=== PATIENT | female | born 1980 | race Caucasian/White ===

== ENCOUNTER 2017-12-30 09:23 | Emergency (ER) | payer MEDICARE ==
[~2017-12-30] VITALS: Ht 162.6 cm; Wt 73.5 kg
--- NOTE | 2017-12-30 09:46 | EKG ---
[address] [address] Test Date: 2017-12-30 Test Time: 09:31:24 Pat Name: GIOVANNI HANDLEY Department: Room: Gender: F Recreation Instructor: : 1980 Requested By: EYAD DELEON Order Number: [id number] Reading MD: Luis Huizar MD Measurements Intervals [place] Rate: 50 P: 67 GA: 126 QRS: 77 QRSD: 82 T: 60 QT: 480 QTc: 440 Interpretive Statements SINUS RHYTHM Electronically Signed On 12-31-2017 10:43:28 CDT by Luis Huizar MD
[2017-12-30 09:52] LABS: BASO % 0 % (0-3); EOS # 0.2 x10^3/uL (0.0-0.7); EOS % 3 % (0-3); HEMATOCRIT 34.4 % (36.0-47.0); LYMPH # 1.1 x10^3/uL (1.0-4.8); LYMPH % 19 % (24-48); MEAN CORPUSCULAR HEMOGLOBIN 34 pg (25-35); MEAN CORPUSCULAR HGB CONC 35 g/dL (31-37); MEAN CORPUSCULAR VOLUME 96 fL (79-100); MONO # 0.4 x10^3/uL (0.0-1.1); MONO % 6 % (0-9); NEUT # 4.3 x10^3uL (1.8-7.7); NEUT % 72 % (31-73); PLATELET COUNT 188 x10^3/uL (140-400); RED BLOOD COUNT 3.58 x10^6/uL (3.50-5.40); RED CELL DISTRIBUTION WIDTH 12.5 % (11.5-14.5); WHITE BLOOD COUNT 5.9 x10^3/uL (4.0-11.0)
[2017-12-30 10:01] LABS: PREG TEST PT QUAL POSITIVE (NEG)
[2017-12-30 10:04] LABS: ALBUMIN 3.4 g/dL (3.4-5.0); ALBUMIN/GLOBULIN RATIO 1.3 (1.0-1.7); CALCIUM 8.3 mg/dL (8.5-10.1); GFR 63.1; POTASSIUM 4.6 mmol/L (3.5-5.1); TOTAL BILIRUBIN 0.5 mg/dL (0.2-1.0); TOTAL PROTEIN 6.1 g/dL (6.4-8.2)
[2017-12-30] MEDS ORDERED: IV NORMAL SALINE 1,000ML 1,000 ML IV ONE (10:15)
--- NOTE | 2017-12-30 11:35 | PHYS DOC ---
Past History Past Medical History: No Pertinent History Past Surgical History: No Surgical History Alcohol Use: Occasionally Drug Use: None Adult General Chief Complaint Chief Complaint: NEAR SYCOPE [facility] HPI Patient is a 37 year old female who brought in by EMS because of vaginal bleeding and near syncope and dizziness. Patient states she was on control for several years irregular menstruation and stopped control pills about couple months ago area patient states she had a normal menstruation in November and the Associates of vaginal bleeding since December 12 with spotting intermittently. 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 Reports that she was hypertensive at 80s and bradycardia at 40s and had nausea and treated with IV fluid and Zofran with improvement of her condition. She denies focal neuro deficit, headache, fever and chills, chest pain and shortness of breath. Review of Systems Review of Systems Constitutional: Denies fever or chills [] Eyes: Denies change in visual acuity, redness, or eye pain [] HENT: Denies nasal congestion or sore throat [] Respiratory: Denies cough or shortness of breath [] Cardiovascular: No additional information not addressed in HPI [] GI: Denies abdominal pain, nausea, vomiting, bloody stools or diarrhea [] : Denies dysuria or hematuria [] Musculoskeletal: Denies back pain or joint pain [] Integument: Denies rash or skin lesions [] Neurologic: Denies headache, focal weakness or sensory changes [] Endocrine: Denies polyuria or polydipsia [] All other systems were reviewed and found to be within normal limits, except as documented in this note. Current Medications Current Medications Current Medications Medications (Trade) Dose Ordered Sig/Chelsi Start Time Stop Time Status Last Admin Dose Admin Sodium Chloride 1,000 ml @ 1,000 mls/hr 1X ONCE 12/30/17 10:15 12/30/17 11:14 DC 12/30/17 10:25 1,000 MLS/HR Allergies Allergies Allergies Coded Allergies Type Severity Reaction Last Updated Verified Penicillins Allergy Intermediate 12/30/17 Yes Physical Exam Physical Exam Constitutional: Well developed, well nourished, no acute distress, non-toxic appearance. [] HENT: Normocephalic, atraumatic, oropharynx moist, no oral exudates, nose normal. [] Eyes: PERRLA, EOMI, conjunctiva normal, no discharge. [] Neck: Normal range of motion, no tenderness, supple, no stridor. [] Cardiovascular: Bradycardia, no murmur [] Lungs & Thorax: Bilateral breath sounds clear to auscultation [] Abdomen: Bowel sounds normal, soft, no tenderness, no masses, no pulsatile masses. Patient did not want to have vaginal exam. [] Skin: Warm, dry, no erythema, no rash. [] Back: No tenderness, no CVA tenderness. [] Extremities: No tenderness, no cyanosis, no clubbing, ROM intact, no edema. [] Neurologic: Alert and oriented X 3, normal motor function, normal sensory function, no focal deficits noted. [] Psychologic: Affect normal, judgement normal, mood normal. [] Current Patient Data Vital Signs Vital Signs Date Time Temp Pulse Resp B/P (MAP) Pulse Ox O2 Delivery O2 Flow Rate FiO2 12/30/17 10:15 63 20 101/51 (68) 100 Room Air 12/30/17 09:23 97.6 Lab Results Laboratory Tests Test 12/30/17 09:39 White Blood Count 5.9 x10^3/uL (4.0-11.0) Red Blood Count 3.58 x10^6/uL (3.50-5.40) Hemoglobin 12.0 g/dL (12.0-15.5) Hematocrit 34.4 % (36.0-47.0) L Mean Corpuscular Volume 96 fL (79-100) Mean Corpuscular Hemoglobin 34 pg (25-35) Mean Corpuscular Hemoglobin Concent 35 g/dL (31-37) Red Cell Distribution Width 12.5 % (11.5-14.5) Platelet Count 188 x10^3/uL (140-400) Neutrophils (%) (Auto) 72 % (31-73) Lymphocytes (%) (Auto) 19 % (24-48) L Monocytes (%) (Auto) 6 % (0-9) Eosinophils (%) (Auto) 3 % (0-3) Basophils (%) (Auto) 0 % (0-3) Neutrophils # (Auto) 4.3 x10^3uL (1.8-7.7) Lymphocytes # (Auto) 1.1 x10^3/uL (1.0-4.8) Monocytes # (Auto) 0.4 x10^3/uL (0.0-1.1) Eosinophils # (Auto) 0.2 x10^3/uL (0.0-0.7) Basophils # (Auto) 0.0 x10^3/uL (0.0-0.2) Maternal Serum HCG Beta Subunit 6434 mIU/mL (0-6) H Sodium Level 140 mmol/L (136-145) Potassium Level 4.6 mmol/L (3.5-5.1) Chloride Level 105 mmol/L (98-107) Carbon Dioxide Level 28 mmol/L (21-32) Anion Gap 7 (6-14) Blood Urea Nitrogen 15 mg/dL (7-20) Creatinine 1.0 mg/dL (0.6-1.0) Estimated GFR (Cockcroft-Gault) 63.1 BUN/Creatinine Ratio 15 (6-20) Glucose Level 121 mg/dL (70-99) H Calcium Level 8.3 mg/dL (8.5-10.1) L Total Bilirubin 0.5 mg/dL (0.2-1.0) Aspartate Amino Transferase (AST) 12 U/L (15-37) L Alanine Aminotransferase (ALT) 18 U/L (14-59) Alkaline Phosphatase 46 U/L (46-116) Troponin I Quantitative < 0.017 ng/mL (0-0.055) Total Protein 6.1 g/dL (6.4-8.2) L Albumin 3.4 g/dL (3.4-5.0) Albumin/Globulin Ratio 1.3 (1.0-1.7) Serum Test, Qualitative Positive (NEG) EKG EKG EKG interpreted by me. EKG at 11-14 showed sinus bradycardia at rate of 50, no acute ST and T-wave abnormalities Radiology/Procedures Radiology/Procedures [address] [address] IMAGING REPORT Signed PATIENT: GIOVANNI HANDLEY ACCOUNT: [id number] : 1980 LOCATION: ER AGE: 37 SEX: F EXAM STATUS: REG ER ORD. PHYSICIAN: EYAD DELEON MD REASON: vaginal bleeding in PROCEDURE: OB <14 WKS W/TV EXAM: Obstetrics sonogram. HISTORY: Vaginal bleeding. TECHNIQUE: Transabdominal and transvaginal sonographic imaging of the pelvis was performed. COMPARISON: None. FINDINGS: The uterus measures 9.5 x 4.0 x 3.8 cm. The cervix measures 3.0 cm in length. The endometrial stripe measures 11 mm in thickness. There is no intrauterine gestational sac. The ovaries are normal in size and demonstrate normal blood flow. There is no pelvic free fluid. IMPRESSION: 1. No evidence of an intrauterine gestational sac. There is no beta-hCG level at the time of dictation for correlation. The absence of a gestational sac may be due to early gestation or a chemical . Correlation with serial beta hCG levels is recommended. If the levels are increasing, short-term follow-up is recommended to assess viability and exclude ectopic gestation. 2. Otherwise, unremarkable pelvic sonogram. Electronically signed by: Ara Fields MD (12/30/2017 11:33 AM) [place] [id number] DICTATED AND SIGNED BY: ARA FIELDS MD DATE: 12/30/17 1131 CC: EYAD DELEON MD ~ Course & Med Decision Making Course & Med Decision Making Pertinent Labs and Imaging studies reviewed. (See chart for details) Evaluation of patient in ER showed 37-year-old female patient with a near syncopal episode and intermittent irregular vaginal bleeding for a few weeks. Patient had positive test with hCG developed 6400. Patient had unremarkable orthostatic vitals and her bradycardia gradually improved. The OB ultrasound did not show intra-or extrauterine or pelvic free fluid. On -call PLUMBING INSTRUCTOR Dr Campos consulted at 1153 and believed patient had blighted ovum and commented to follow-up with his office in 2 days. She had O- blood type and RhoGam was given in ER.it looked Patient had complete spontaneous but instructed to follow with PLUM[employer] IN[employer]CTOR for repeat ultrasound and hCG level. Dragon Disclaimer Dragon Disclaimer This electronic medical record was generated, in whole or in part, using a voice recognition dictation system. Departure Departure: Impression: Primary Impression: Near syncope Additional Impressions: Currently Blighted ovum Need for rhogam due to Rh negative mother Bradycardia Disposition: HOME, SELF-CARE (At 1212) Condition: IMPROVED Referrals: EYAD DELEON MD (PCP) Patient Instructions: Threatened Miscarriage Additional Instructions: Drink plenty of liquids Follow-up with on-call PLUMBING INSTRUCTOR doctor Andres, call at [phone] to make an appointment on Thursday Return to ER if not getting better Problem Qualifiers EYAD DELEON MD Dec 30, 2017 11:35
[2017-12-30 12:39] VITALS: BP 99/40
[2017-12-30 12:41] VITALS: BP 99/40
[2017-12-30 13:00] VITALS: BP 99/40
== END 2017-12-30 13:10 | disposition home or self-care (01) ==
LOC: ER 09:23
DX: O26.891 Other specified pregnancy related conditions, first trimester (principal); R55 Syncope and collapse; O02.0 Blighted ovum and nonhydatidiform mole; O08.89 Other complications following an ectopic and molar pregnancy; O99.89 Other specified diseases and conditions complicating pregnancy, childbirth and the puerperium; O36.0910 Maternal care for other rhesus isoimmunization, first trimester, not applicable or unspecified; R00.1 Bradycardia, unspecified; Z3A.00 Weeks of gestation of pregnancy not specified; Z88.0 Allergy status to penicillin
CPT/HCPCS: 36415; 36430; 76801; 76817; 80053; 84484; 84702; 84703; 85025; 86850; 86900; 86901; 93005; 96360; 96361; 99285; J2791; J7030